=== PATIENT | female | born 1950 | race Caucasian/White ===

== ENCOUNTER 2018-05-08 09:05 | Outpatient (CLI) | payer MEDICARE ==
[2018-05-08 09:35] LABS: #Monocytes 0.7 thou/uL (0.11-0.59); #Neutrophils 10.8 thou/uL (1.40-6.50); %Basophils 0.3 % (0.0-1.0); %Eosinophils 0.2 % (0.0-10.0); %Monocytes 5.4 % (0.0-10.0); %Neutrophils 86.2 % (42.0-75.0); Hemoglobin 14.8 g/dL (12.0-16.0); Mean Corpuscular HGB CONC 33.6 g/dL (32.0-36.0); Mean Corpuscular Hemoglobin 31.4 pg (27.0-31.0); Mean Corpuscular Volume 93.4 fL (78.0-98.0); Mean Platelet Volume 7.5 fL (7.4-10.4); Platelet Count 238 thou/uL (130-400); RBC Distribution Width 12.1 % (11.5-14.5); Red Blood Cell (RBC) Count 4.72 mill/uL (4.20-5.40); White Blood Cell (WBC) Count 12.5 thou/uL (4.8-10.8)
[2018-05-08 09:59] LABS: ALT (SGPT) 17 U/L (8-55); AST (SGOT) 15 U/L (5-34); Albumin 4.1 g/dL (3.4-4.8); Alkaline Phosphatase 46 U/L (40-150); Anion Gap 15 mmol/L (10-20); BUN (Urea Nitrogen) 12 mg/dL (9.8-20.1); Bilirubin, Total 0.9 mg/dL (0.2-1.2); Calc. Creatinine Clearance 0 mL/min (70-130); Calcium 9.2 mg/dL (7.8-10.44); Carbon Dioxide 24 mmol/L (23-31); Chloride 104 mmol/L (98-107); Estimated GFR-MDRD 85; Globulin 2.9 g/dL (2.4-3.5); Glucose 104 mg/dL (80-115); Potassium 3.7 mmol/L (3.5-5.1); Sodium 139 mmol/L (136-145)
[2018-05-08] MEDS ORDERED: Iopamidol 370 76% 100 ML VIAL ONE (10:42)
--- NOTE | 2018-05-08 14:14 | CT ---
CT ABDOMEN AND PELVIS WITH IV AND ORAL CONTRAST: HISTORY: Pelvic pain. Inflammation. FINDINGS: Mild stranding at the lung bases. The liver, spleen, kidneys, adrenal glands, and pancreas have a no rmal CT appearance. No enlarged lymph nodes are apparent. The urinary bladder is incompletely diste nded. Within the central pelvis, just anterior to the upper sacrum, there is stranding in the abdominal fat . A very small pocket of gas appears to be outside the lumen of the mildly inflamed sigmoid colon. There is subtle wall thickening of the adjacent small bowel loop. IMPRESSION: Abnormality within the lower central pelvis, favored to represent sigmoid colitis, likely diverticuli tis, with a small pocket of extraluminal gas, suggesting a microperforation. Findings were called to Dr. Cerrato at 1132 hours. CODE CR POS: [id number]
== END 2018-05-08 09:06 | disposition home or self-care (01) ==
LOC: SCSCT 09:05
PROVIDERS: ATTEND Family Medicine
DX: R10.31 Right lower quadrant pain (principal); R93.5 Abnormal findings on diagnostic imaging of other abdominal regions, including retroperitoneum
CPT/HCPCS: 36415; 74177; 80053; 85025

== ENCOUNTER 2018-05-08 11:46 | Inpatient (IN) | payer MEDICARE ==
[2018-05-08] MEDS ORDERED: metroNIDAZOLE 500 MG/100 ML BAG ONE (12:16)
[2018-05-08] MEDS ORDERED: Ketorolac Tromethamine 30 MG/ML VIAL ONE (12:37)
[2018-05-08] MEDS ORDERED: Ciprofloxacin Lactate/D5W 400 mg/200 ml Premix ONE (12:37)
[2018-05-08 12:39] LABS: Band 3 % (5-11); Hemoglobin 14.1 g/dL (12.0-16.0); Lymphocytes 8 % (21-51); MDiff Complete? YES; Mean Corpuscular HGB CONC 33.2 g/dL (32.0-36.0); Mean Corpuscular Hemoglobin 31.4 pg (27.0-31.0); Mean Corpuscular Volume 94.4 fL (78.0-98.0); Monocytes 6 % (0-10); Neutrophil 81 % (42-75); Platelet Count 228 thou/uL (130-400); Platelet Morphology Comment Appears Adequate; RBC Distribution Width 12.2 % (11.5-14.5); Reactive Lymphocytes 2 % (0-10); White Blood Cell (WBC) Count 12.2 thou/uL (4.8-10.8)
[2018-05-08 12:44] LABS: ALT (SGPT) 14 U/L (8-55); AST (SGOT) 13 U/L (5-34); Albumin 3.9 g/dL (3.4-4.8); Alkaline Phosphatase 45 U/L (40-150); Anion Gap 14 mmol/L (10-20); BUN (Urea Nitrogen) 10 mg/dL (9.8-20.1); Bilirubin, Total 0.9 mg/dL (0.2-1.2); Calc. Creatinine Clearance 0 mL/min (70-130); Calcium 8.9 mg/dL (7.8-10.44); Carbon Dioxide 23 mmol/L (23-31); Chloride 103 mmol/L (98-107); Estimated GFR-MDRD 88; Globulin 2.7 g/dL (2.4-3.5); Glucose 93 mg/dL (80-115); Potassium 3.7 mmol/L (3.5-5.1); Protein, Total 6.6 g/dL (6.0-8.3); Sodium 136 mmol/L (136-145)
[2018-05-08] MEDS ORDERED: Calcium Carbonate 500 MG ChewTAB PO PRN (14:44)
[2018-05-08] MEDS ORDERED: Acetaminophen 325 MG TAB PO PRN (14:44)
[2018-05-08] MEDS ORDERED: Ondansetron ODT 4 MG TAB PO PRN (14:44)
[2018-05-08] MEDS ORDERED: Acetaminophen 650 MG Suppository PR PRN (14:44)
[2018-05-08] MEDS ORDERED: Ondansetron PF 4 MG/2 ML Vial IVP PRN (14:44)
[2018-05-08 15:00] VITALS: BMI 21.5
[2018-05-08] MEDS: D5 1/2 NS w/20 mEq KCL 1,000 ML IV SCH (15:30)
[2018-05-08] MEDS ORDERED: Morphine 2 MG/ML SYRINGE SLOW IVP PRN (15:30)
[2018-05-08] MEDS ORDERED: HYDROcodone/Acetaminophen 5/325 mg Tablet PO PRN (15:30)
--- NOTE | 2018-05-08 16:12 | HP ---
PRIMARY CARE PHYSICIAN: Dr. Slade Cerrato. PRIMARY PSYCHIATRIC ASSISTANT: Dr. Marilee Rolon. CHIEF COMPLAINT: Abdominal discomfort of 2 days' duration. The patient was sent from Dr. Cerrato's office. HISTORY OF PRESENT ILLNESS: The patient is a 67-year-old female with diverticulosis, presented to the emergency room from her PCP's office with abdominal discomfort of 2 days' duration. It was mainly localized in the right lower quadrant. Initially, it was constant. However, over the last 2 days, it has become intermittent. It gets worse on sitting and ambulation. The pain was moderate in intensity, dull in character. She denies any fever, chills, nausea, vomiting, diarrhea, or constipation. She had a colonoscopy last year, which was essentially normal per the patient's report. She has 1 bowel movement on a daily basis. Denies any weight loss. She denies any hematemesis, melena, or hematochezia. The patient underwent a CT scan of the abdomen earlier today that showed sigmoid diverticulitis with small pockets of extraluminal gas suggesting microperforation. She was started on IV antibiotics at the emergency room. PAST MEDICAL HISTORY: Diverticulosis. PAST SURGICAL HISTORY: Hernia repair in 1994, hysterectomy in 2005, right shoulder arthroscopy in 2010, bladder surgery, colonoscopy in 2018 that was normal. ALLERGIES: THE PATIENT IS ALLERGIC TO KEFLEX THAT MAKES HER SICK. PENICILLIN CAUSES HIVES. CURRENT HOME MEDICATIONS: Reviewed with the patient and none. SOCIAL HISTORY: The patient currently lives at home with her family. Denies any smoking. She drinks alcohol rarely. She is retired. FAMILY HISTORY: Positive for melanoma. She denies any GI malignancies in the family. REVIEW OF SYSTEMS: All other review of systems was reviewed and was found negative. PHYSICAL EXAMINATION: VITAL SIGNS: In the emergency room show temperature 98.6, respirations 16, pulse of 94, blood pressure 146/68, with O2 saturation 99% on room air. GENERAL: A 67-year-old female, in no significant distress. Pain improved. HEENT: Head; atraumatic, normocephalic. Sclerae anicteric. Moist mucous membranes. No oral lesion. NECK: Supple. No JVD appreciated. No carotid bruit. LUNGS: Essentially clear to auscultation bilaterally. No wheezing, rales, or rhonchi. HEART: S1 and S2 present. Regular rate and rhythm. No murmurs, rubs, or gallops appreciated. ABDOMEN: Soft. Bowel sounds present. There is [id number] tenderness in the lower quadrants, especially on the right. No rebound or guarding. No costovertebral angle tenderness. EXTREMITIES: No edema or calf tenderness. NEUROLOGIC: Grossly nonfocal. Moves all 4 extremities PSYCHIATRIC: Alert, awake, and oriented x3. SKIN: Warm and dry. LYMPH NODES: No palpable lymph nodes in the neck. PERIPHERAL VASCULAR: Radial pulses palpable bilaterally. MUSCULOSKELETAL: No joint swelling or tenderness. LABORATORY FINDINGS: CBC showed WBC 12.2, with hemoglobin 14.1, hematocrit 42.5, and platelets of 228. Chemistry showed sodium 136, potassium 3.7, chloride 103, bicarb 23, BUN 10, creatinine 0.67. LFTs in normal range. CT scan of the abdomen by my review as discussed above. IMPRESSION: 1. Acute diverticulitis, complicated by microperforation. 2. History of diverticulosis. 3. Leukocytosis secondary to #1. 4. Chronic kidney disease stage 2. 5. Penicillin allergy. PLAN: The patient will be monitored on the medical floor. General Surgery will be consulted. We will continue ciprofloxacin, Flagyl, with IV fluids. We will start her on clear-liquid diet. IV pain medicine as needed. Recheck labs in a.m. DVT prophylaxis with SCDs. The patient was advised to ambulate. CODE STATUS: Full code. The patient makes her own decision with the help of her family. Plan of care was discussed with the patient in detail. She stated understanding. Job ID: [id number]
[2018-05-08] MEDS: metroNIDAZOLE 500 MG in Premix Bag 1 BAG IVPB SCH (20:40)
[2018-05-08] MEDS: Famotidine 20 MG TAB PO SCH (20:41)
[2018-05-08] MEDS ORDERED: Docusate 100 MG CAP PO SCH (21:00)
--- NOTE | 2018-05-08 22:26 | CON ---
DATE OF CONSULTATION: 05/08/2018 SURGEON: Myron Elise DO HISTORY OF PRESENT ILLNESS: The patient is a 67-year-old female who reports having severe lower abdominal pain and cramping starting about two days ago. She reports that she has not had this type of pain previously and that it caused her to lie in bed for the past two days. She has not been eating or drinking. She denies nausea, vomiting, diarrhea, as well as loose stools. She has had a bowel movement today after receiving p.o. contrast. She denies flatus for several days. She does not have any history of diverticulitis, but does report that on colonoscopy she was told that she does have diverticulosis, but has not had any flares previously. PAST MEDICAL HISTORY: None. PAST SURGICAL HISTORY: Hysterectomy, hernia repair, right shoulder surgery, and bladder sling surgery. SOCIAL HISTORY: The patient denies tobacco, alcohol, or drug abuse. She is . MEDICATIONS: Premarin ALLERGIES: KEFLEX AND PENICILLIN. PHYSICAL EXAMINATION: VITAL SIGNS: Temperature 98.5, pulse 76, respirations 14, oxygen saturation 99 % on room air, blood pressure 100/63. GENERAL: Well-appearing middle-aged female, lying in bed with no signs of acute distress. PULMONARY: Equal chest rise and fall. No signs of acute distress. Clear breath sounds bilaterally. ABDOMEN: Soft, mildly inappropriately tender to the bilateral lower quadrants and nondistended. BACK: No back pain. No CVA tenderness noted. EXTREMITIES: Gross motor and sensation intact in all 4 extremities. 2+ pulses in all extremities. No swelling noted. LABORATORY DATA: White count 12.2, hemoglobin 14.1, hematocrit 42.5, platelets 228. Sodium 136, potassium 3.7, chloride 103, carbon dioxide 23, BUN 10, creatinine 0.67. Total bilirubin 0.9, AST 13, ALT 14. DIAGNOSTIC FINDINGS: CT of the abdomen and pelvis indicates acute diverticulitis with microperforations. ASSESSMENT: 1. Acute diverticulitis with microperforations. 2. Leukocytosis. 3. Dehydration. PLAN AND RECOMMENDATIONS: The patient should be started on IV Flagyl and Cipro for a total duration of two weeks. She can have a clear liquid diet for now and should receive IV hydration along with her clear liquid diet. There is no acute surgical indication at this time. We will continue to monitor the patient and will reexamine tomorrow. Once the patient is able to tolerate a regular diet, she can be switched over to p.o. Cipro and Flagyl. This patient was discussed with Dr. Elise before this dictation. Job ID: [id number] MTDD
[2018-05-09] MEDS: D5 1/2 NS w/20 mEq KCL 1,000 ML IV SCH ×2 (00:48→12:47)
[2018-05-09] MEDS: metroNIDAZOLE 500 MG in Premix Bag 1 BAG IVPB SCH (04:38)
[2018-05-09 06:48] LABS: Phosphorus 1.9 mg/dL (2.3-4.7)
[2018-05-09 06:51] LABS: ALT (SGPT) 8 U/L (8-55); AST (SGOT) 11 U/L (5-34); Albumin 3.2 g/dL (3.4-4.8); Alkaline Phosphatase 39 U/L (40-150); Anion Gap 10 mmol/L (10-20); BUN (Urea Nitrogen) 5 mg/dL (9.8-20.1); Bilirubin, Total 0.7 mg/dL (0.2-1.2); Calc. Creatinine Clearance 77 mL/min (70-130); Carbon Dioxide 22 mmol/L (23-31); Chloride 112 mmol/L (98-107); Estimated GFR-MDRD Greater than 90; Globulin 1.8 g/dL (2.4-3.5); Glucose 99 mg/dL (80-115); Magnesium 1.8 mg/dL (1.6-2.6); Potassium 4.3 mmol/L (3.5-5.1); Sodium 140 mmol/L (136-145)
[2018-05-09 07:29] LABS: #Eosinphils 0.1 thou/uL (0.0-0.7); #Lymphocytes 1.4 thou/uL (1.20-3.40); #Monocytes 0.7 thou/uL (0.11-0.59); #Neutrophils 4.4 thou/uL (1.40-6.50); %Basophils 0.2 % (0.0-1.0); %Eosinophils 2.1 % (0.0-10.0); %Lymphocytes 21.4 % (21.0-51.0); %Monocytes 9.7 % (0.0-10.0); %Neutrophils 66.6 % (42.0-75.0); Hemoglobin 12.1 g/dL (12.0-16.0); Mean Corpuscular HGB CONC 32.2 g/dL (32.0-36.0); Mean Corpuscular Hemoglobin 31.9 pg (27.0-31.0); Mean Corpuscular Volume 99.2 fL (78.0-98.0); Mean Platelet Volume 7.3 fL (7.4-10.4); Platelet Count 216 thou/uL (130-400); RBC Distribution Width 11.6 % (11.5-14.5); Red Blood Cell (RBC) Count 3.78 mill/uL (4.20-5.40); White Blood Cell (WBC) Count 6.7 thou/uL (4.8-10.8)
[2018-05-09] MEDS ORDERED: Enoxaparin Sodium 40 MG/0.4 ML SYRINGE SC SCH (09:00)
[2018-05-09] MEDS: Famotidine 20 MG TAB PO SCH ×2 (09:22→19:42)
[2018-05-09] MEDS: Saccharomyces boulardii 250 MG CAP PO SCH (09:22)
[2018-05-09] MEDS: K-Phos Neutral 250 MG TAB PO SCH ×3 (09:22→17:32)
[2018-05-09] MEDS: metroNIDAZOLE 500 MG TAB PO SCH ×2 (12:03→19:42)
--- NOTE | 2018-05-09 14:04 | PRG ---
DATE OF SERVICE: 05/09/2018 SUBJECTIVE: This is a 67-year-old woman with history of diverticulitis with microperforation whom I consulted for assessment of surgical evaluation/ management possibility. Today, the patient reports improvement in pain, this was described as 5/10 in the epigastric area. She was able to tolerate a clear liquid diet and endorses flatus and bowel movement. She denies nausea, vomiting, fever, and chills. She has been started on IV Flagyl and Cipro since admission. OBJECTIVE: VITAL SIGNS: Temperature 98.5, pulse 72, respiration 18, O2 saturation 99% on room air, BP 99/64. GENERAL: The patient is in no acute distress, resting comfortably sitting up in bed. HEENT: Unremarkable. CARDIOVASCULAR: Regular rate and rhythm with no murmurs, rubs, or gallops. RESPIRATORY: Equal rise and fall of chest, no acute respiratory distress. ABDOMEN: Mild epigastric tenderness to palpation. Nondistended. Normal bowel sounds. EXTREMITIES: Moves all extremities, neurovascularly intact. SKIN: Well hydrated. Good skin turgor. Cap refill less than 2 seconds. LABORATORY DATA: WBC 6.7, hemoglobin 12.1, hematocrit 37.9, MCV 99.2, platelets 216. Chem includes sodium 140, potassium 4.3, chloride 112, carbon dioxide 22, phosphorus 1.9. DIAGNOSTIC IMAGING: There is no new imaging to review today. ASSESSMENT: 1. Acute diverticulitis with microperforation. 2. Leukocytosis, resolved. 3. Dehydration, resolved. 4. Hyperphosphatemia. PLAN AND RECOMMENDATIONS: We will switch the patient from IV to p.o. antibiotics since she has tolerated her clear liquid diet well. There is no surgical intervention indicated at this time. We will switch the patient from IV to p.o. Flagyl and Cipro for a total duration of 2 weeks. Since she is able to tolerate clear liquid diet, we will start patient on full liquid diet. We will advance as tolerated. We will discontinue IV fluids. We will continue to monitor the patient and we will examine tomorrow. Phosphorus is replaced by primary team. Thank you for allowing us to follow along with your patient. If you have any questions or concerns, please do not hesitate to contact our team. The patient was seen and examined by Dr. Elise, who agrees with the plan above. Job ID: [id number] [facility]
--- NOTE | 2018-05-09 14:18 | PRG ---
DATE OF SERVICE: 05/09/2018 SUBJECTIVE: Ms. Camacho is a 67-year-old woman, who was admitted yesterday with acute diverticulitis with microperforation. The patient was started on intravenous broad-spectrum antibiotic therapy. She was placed also on clear liquid diet, which she is tolerating at the moment. Today, she reports resolving abdominal pain. She has been tolerating a clear liquid diet, having multiple loose bowel movements. She denies any fevers or chills. OBJECTIVE: VITAL SIGNS: This morning include blood pressure is 99/65, pulse is 72, respiratory rate is 18, temperature is 98.5 degrees Fahrenheit, oxygen saturation 99% on room air. HEENT: Pupils are equal, round, reactive to light and accommodation. NECK: She has no jugular venous distention noted. HEART: Reveals regular rate and rhythm. No murmurs or gallops auscultated. LUNGS: Clear to auscultation bilaterally. Her breathing, regular and nonlabored. ABDOMEN: Soft with moderate tenderness to palpation, especially in the left lower quadrant with no gross rebound tenderness present. Liver and spleen nonpalpable below costal margins. LABORATORY FINDINGS: Today include a CBC with normal white blood cell count of 6700 in contrast to yesterday of 12,200. Hemoglobin and hematocrit are 12.1 and 37.5 respectively. Platelet count is 216,000. Metabolic profile; sodium 140, potassium 4.3, chloride is 112, bicarb is 22, BUN 5, creatinine 0.65, glucose 99, phosphorus is 1.9, magnesium is 1.8. AST and ALT are 11 and 8 respectively. IMPRESSION: 1. Resolving acute sigmoid colon diverticulitis with microperforation. No evidence of acute peritonitis. 2. Acute hypomagnesemia. 3. Acute hypophosphatemia. PLAN: 1. Correct abnormal electrolytes. 2. We will convert antibiotic therapy to oral intake, and if the patient tolerates this, she may very well be discharged home tomorrow so long as there is no worsening of abdominal pain or onset of fever. 3. Her diet her will be advanced to regular. 4. Above findings and plan discussed with the patient, who indicates understanding information given. 5. I have answered her questions. Job ID: [id number]
[2018-05-09] MEDS: Ciprofloxacin 500 MG TAB PO SCH (17:32)
--- NOTE | 2018-05-09 19:37 | PDOC.PN ---
- Subjective Encounter Start Date: 05/09/18 Encounter Start Time: 11:00 Patient seen and examined for Acute diverticulitis. Abd pain improving. No N/V. No new complaints. No overnight events - Objective Resuscitation Status - Order Detail: 05/08/18 14:44 Resuscitation Status Routine Resuscitation Status: FULL: Full Resuscitation MAR Reviewed: Yes Vital Signs & Weight: Vital Signs (12 hours) Temp Pulse Resp BP Pulse Ox 05/09/18 19:34 99.5 F 80 16 107/60 97 Weight Weight 125 lb 10.616 oz Result Diagrams: 05/09/18 05:52 05/09/18 05:52 Phys Exam - Physical Examination Constitutional: NAD Respiratory: no wheezing, no rhonchi Cardiovascular: RRR, no rub Gastrointestinal: soft, positive bowel sounds mild RLQ tenderness, no rebound/guarding Dx/Plan - Plan cont current plan of care, continue antibiotics, out of bed/ambulate, DVT proph w/SCDs IMPRESSION: 1. Acute diverticulitis, complicated by microperforation. 2. History of diverticulosis. 3. Leukocytosis secondary to #1. 4. Hypophosphatemia 5. Chronic kidney disease stage 2. 6. Penicillin allergy. PLAN: Cont Atbx - change to PO per surgery Advance diet per Surg Replace Phosphorus Phosphorus level in AM Review of Systems - Review of Systems Respiratory: negative: Cough, Dry, Shortness of Breath, Hemoptysis, SOB with Excertion, Pleuritic Pain, Sputum, Wheezing Cardiovascular: negative: chest pain, palpitations, orthopnea, paroxysmal nocturnal dyspnea, edema, light headedness, other - Medications/Allergies Allergies/Adverse Reactions: Allergies Allergy/AdvReac Type Severity Reaction Status Date / Time Cephalosporins Allergy Verified 05/08/18 18:38 Penicillins Allergy Verified 05/08/18 18:38 Medications: Current Medications Acetaminophen (Tylenol) 650 mg PO Q4H PRN PRN Reason: Headache/Fever/Mild Pain (1-3) Acetaminophen (Tylenol) 650 mg OK Q4H PRN PRN Reason: Headache/Fever/Mild Pain (1-3) Hydrocodone Bitart/Acetaminophen ([place] 5/325) 1 tab PO Q4H PRN PRN Reason: Moderate Pain (4-6) Calcium Carbonate (Tums) 1,000 mg PO Q4H PRN PRN Reason: Heartburn or Indigestion Ciprofloxacin (Cipro) 500 mg PO Q12H [facility] Last Admin: 05/09/18 17:32 Dose: 500 mg Famotidine (Pepcid) 20 mg PO BID [facility] Last Admin: 05/09/18 09:22 Dose: 20 mg Metronidazole (Flagyl) 500 mg PO Q8H [facility] Last Admin: 05/09/18 12:03 Dose: 500 mg Ondansetron HCl (Zofran Odt) 4 mg PO Q6H PRN PRN Reason: Nausea/Vomiting Ondansetron HCl (Zofran) 4 mg IVP Q6H PRN PRN Reason: Nausea/Vomiting Phosphorus (Kphos Neutral) 250 mg PO TID-WM [facility] Last Admin: 05/09/18 17:32 Dose: 250 mg Saccharomyces Boulardii (Florastor) 250 mg PO DAILY [facility] Last Admin: 05/09/18 09:22 Dose: 250 mg Sodium Chloride (Flush - Normal Saline) 10 ml IVF PRN PRN PRN Reason: Saline Flush
[2018-05-09] MEDS ORDERED: Ciprofloxacin 500 MG TAB PO SCH (21:00)
[2018-05-10] MEDS: metroNIDAZOLE 500 MG TAB PO SCH ×2 (04:34→11:40)
[2018-05-10] MEDS: Ciprofloxacin 500 MG TAB PO SCH (05:59)
[2018-05-10 07:01] LABS: Phosphorus 3.2 mg/dL (2.3-4.7)
[2018-05-10 07:27] VITALS: TEMP 98.2
[2018-05-10] MEDS: Famotidine 20 MG TAB PO SCH (08:00)
[2018-05-10] MEDS: Saccharomyces boulardii 250 MG CAP PO SCH (08:00)
[2018-05-10] MEDS: K-Phos Neutral 250 MG TAB PO SCH ×2 (08:01→11:40)
--- NOTE | 2018-05-10 08:31 | DIS ---
DATE OF ADMISSION: 05/08/2018 DATE OF DISCHARGE: 05/10/2018 PRIMARY CARE PHYSICIAN: Slade Cerrato MD. DISCHARGE DISPOSITION: Home. PRIMARY DISCHARGE DIAGNOSES: 1. Acute diverticulitis with microperforation. 2. Leukocytosis due to Acute diverticulitis. 3. Hypophosphatemia. SECONDARY DISCHARGE DIAGNOSIS: Chronic kidney disease, stage 2. PRIMARY PROCEDURE/OPERATION: None. RADIOLOGICAL INVESTIGATION: CT abdomen and pelvis showed sigmoid diverticulitis with microperforation. SIGNIFICANT LABORATORY DATA: WBC 6.7, hemoglobin 12.1, and platelet 216. Sodium 140, potassium 4.3, and creatinine 0.65. Liver enzymes normal. Phosphorus 3.2. DISCHARGE MEDICATIONS: 1. Cipro 500 mg p.o. b.i.d. for 15 days. 2. Flagyl 500 mg t.i.d. for 15 days. 3. Florastor 250 mg p.o. daily for 15 days. CONTRAINDICATION: None. CODE STATUS: Full code. INPATIENT CERTIFIED PROFESSIONAL ERGONOMIST: Dr. Elise was following while in hospital. TEST RESULT PENDING ON DISCHARGE: None. ALLERGIES: KEFLEX, CEPHALOSPORINS, AND PENICILLIN. DISCHARGE PLAN: Posthospital, the patient is instructed to follow up with primary care physician in 2 weeks. HOSPITAL COURSE: A 67-year-old female with above-mentioned medical problem, who was admitted by Dr. Paul Magallon on May 08, 2018. Please see his H and P for further details. The patient presented with left lower quadrant abdominal pain. She had leukocytosis. Her pain was 2 days' duration. She had CT abdomen and pelvis, which showed sigmoid diverticulitis with microperforation. She has history of diverticulosis. Dr. Elise was consulted and he recommended conservative therapy. She had low phosphorus, which was replaced. The patient's pain was completely subsided. She is hemodynamically stable. She is tolerating diet well. She is feeling perfectly normal to go home. Consultants cleared her for discharge as well. The patient is seen and examined at the bedside today. All review of systems reviewed with her and are negative. PHYSICAL EXAMINATION: VITAL SIGNS: Currently, temperature 98.2, pulse 88, respiratory rate 19, saturation 97%, and blood pressure 111/74. Weight 125 pounds. GENERAL: The patient is currently alert and oriented. No obvious acute distress. HEENT: Head; normocephalic, atraumatic. Eyes; pupils are round and reactive to light. Extraocular muscle intact. LUNGS: Clear to auscultation without any rhonchi or rales. CARDIAC: S1 and S2, regular without any murmur. ABDOMEN: Soft and benign without any significant tenderness. Mild discomfort noted in left lower quadrant, but no rebound, no guarding, no rigidity. NEUROLOGICAL: Nonfocal examination. All new medication prescription sent to her pharmacy. The patient is medically stable for discharge today. Job ID: [id number]
[2018-05-10 11:45] VITALS: BP 96/55
== END 2018-05-10 13:50 | disposition home or self-care (01) | DRG 392 ==
LOC: SCSER 11:46 → T4-A 14:01 → T4-B 14:21 → L&D 14:38 → T4-B 14:39
PROVIDERS: ADMIT Internal Medicine; ATTEND Internal Medicine
DX: K57.20 Diverticulitis of large intestine with perforation and abscess without bleeding (principal); N18.2 Chronic kidney disease, stage 2 (mild); E86.0 Dehydration; E83.39 Other disorders of phosphorus metabolism; E83.42 Hypomagnesemia
CPT/HCPCS: 36415; 74177; 80053; 83735; 84100; 85025; 96365; 96368; 96375; J0744; J1885; Q9967

== ENCOUNTER 2018-05-22 07:45 | Outpatient (CLI) | payer MEDICARE ==
--- NOTE | 2018-05-22 13:07 | CT ---
CT ABDOMEN AND PELVIS WITH CONTRAST: Comparison: 05-08-18 History: Follow up sigmoid colitis. Sigmoid diverticulitis. Technique: Multiple contiguous axial images were obtained in a CT of the abdomen and pelvis with cont rast. PO contrast was administered. Coronal reformats were performed. FINDINGS: Scattered diverticula are seen in the colon. No free air, free fluid, or stranding changes are seen i n the abdomen or pelvis on today's examination. The previously seen inflammatory change surrounding t he sigmoid colon has resolved. The small bowel is normal in caliber. The liver, gallbladder, kidneys, adrenal glands, spleen and pancreas are unremarkable. No abdominal o r pelvic lymphadenopathy are seen. The patient is status post hysterectomy. The osseous structures, visualized inferior thorax and abdominal wall soft tissues are unremarkable. IMPRESSION: 1. Resolution of inflammatory change surrounding the sigmoid colon. 2. Diverticulosis. POS: SHIRAZ
== END 2018-05-22 07:46 | disposition home or self-care (01) ==
LOC: SCSCT 07:45
PROVIDERS: ATTEND Physician Assistant
DX: K57.20 Diverticulitis of large intestine with perforation and abscess without bleeding (principal); K57.30 Diverticulosis of large intestine without perforation or abscess without bleeding
CPT/HCPCS: 74177

== ENCOUNTER 2018-12-19 08:55 | Outpatient (CLI) | payer MEDICARE ==
--- NOTE | 2018-12-19 10:54 | BD ---
DEXA BONE MINERAL DENSITY STUDY: HISTORY: Osteoporosis screening. COMPARISON: None. FINDINGS: Lumbar Spine: BMD (g/cm2) L1 0.853 T-Score: -1.2, 0.4 L2 1.000 T-Score: -0.3, 1.6 L3 0.972 T-Score: -1.0, 1.0 L4 0.997 T-Score: -0.6, 1.5 L1-L4 0.960 T-Score: -0.8, 1.1 Femoral Neck: 0.686 T-Score: -1.5, 0.2 Total Femur: 0.861 T-Score: -0.7, 0.7 WHO CLASSIFIATION: Osteopenia. TEN-YEAR FRACTURE RISK: Major osteoporotic fracture 8.4% and hip fracture 1%. Impression: Osteopenia with fracture risk as above. POS: OFF
--- NOTE | 2018-12-20 08:48 | MMO ---
Bilateral MAMMO Bilat Screen [facility]. CLINICAL HISTORY: Patient is 68 years old and is seen for screening. The patient has no family history of breast cancer. The patient has no personal history of cancer. The patient has a history of left Excisional Biopsy in 1988 - benign. VIEWS: The views performed were: bilateral craniocaudal with tomosynthesis and bilateral mediolateral oblique with tomosynthesis. FILMS COMPARED: The present examination has been compared to prior imaging studies performed at [facility] on 02/03/2010, 12/27/2011, 04/09/2014 and 09/28/2016. This study has been interpreted with the assistance of computer-aided detection. MAMMOGRAM FINDINGS: There are scattered fibroglandular densities. Benign calcifications are noted bilaterally. There are no suspicious masses, suspicious calcifications, or new areas of architectural distortion. IMPRESSION: THERE IS NO MAMMOGRAPHIC EVIDENCE OF MALIGNANCY. A ROUTINE FOLLOW-UP MAMMOGRAM IN 1 YEAR IS RECOMMENDED. THE RESULTS OF THIS EXAM WERE SENT TO THE PATIENT. ACR BI-RADS Category 2 - Benign finding MAMMOGRAPHY NOTE: 1. A negative mammogram report should not delay a biopsy if a dominant of clinically suspicious mass is present. 2. Approximately 10% to 15% of breast cancers are not detected by mammography. 3. Adenosis and dense breasts may obscure an underlying neoplasm. Reported by: Rosaura STOKES Electonically Signed: [id number]
== END 2018-12-19 08:56 | disposition home or self-care (01) ==
LOC: BICMAMMO 08:55
PROVIDERS: ATTEND Family Medicine
DX: Z12.31 Encounter for screening mammogram for malignant neoplasm of breast (principal); Z13.820 Encounter for screening for osteoporosis; Z78.0 Asymptomatic menopausal state; M85.859 Other specified disorders of bone density and structure, unspecified thigh
CPT/HCPCS: 77063; 77067; 77080

== ENCOUNTER 2019-12-23 08:02 | Outpatient (CLI) | payer MEDICARE ==
--- NOTE | 2019-12-23 08:54 | MMO ---
Bilateral MAMMO Bilat Screen [facility]. CLINICAL HISTORY: Patient is 69 years old and is seen for screening. The patient has no family history of breast cancer. The patient has no personal history of cancer. The patient has a history of left Excisional Biopsy in 1988 - benign. VIEWS: The views performed were: bilateral craniocaudal with tomosynthesis and bilateral mediolateral oblique with tomosynthesis. FILMS COMPARED: The present examination has been compared to prior imaging studies performed at [facility] on 12/27/2011, 04/09/2014, 09/28/2016 and 12/19/2018. This study has been interpreted with the assistance of computer-aided detection. MAMMOGRAM FINDINGS: There are scattered fibroglandular densities. Benign calcifications are noted bilaterally. There are no suspicious masses, suspicious calcifications, or new areas of architectural distortion. IMPRESSION: THERE IS NO MAMMOGRAPHIC EVIDENCE OF MALIGNANCY. A ROUTINE FOLLOW-UP MAMMOGRAM IN 1 YEAR IS RECOMMENDED. THE RESULTS OF THIS EXAM WERE SENT TO THE PATIENT. ACR BI-RADS Category 2 - Benign finding MAMMOGRAPHY NOTE: 1. A negative mammogram report should not delay a biopsy if a dominant of clinically suspicious mass is present. 2. Approximately 10% to 15% of breast cancers are not detected by mammography. 3. Adenosis and dense breasts may obscure an underlying neoplasm. Reported by: MONSTER ESPAÑA MD Electonically Signed: [id number]
== END 2019-12-23 08:03 | disposition home or self-care (01) ==
LOC: BICMAMMO 08:02
PROVIDERS: ATTEND Family Medicine
DX: Z12.31 Encounter for screening mammogram for malignant neoplasm of breast (principal); Z91.89 Other specified personal risk factors, not elsewhere classified
CPT/HCPCS: 77063; 77067